=== PATIENT | female | born 1995 | race Asian ===

== ENCOUNTER 2017-07-07 10:20 | Emergency (ER) | payer OTHER ==
[~2017-07-07] VITALS: Ht 162.6 cm; Wt 54.4 kg
[2017-07-07 10:39] VITALS: BP 132/92
[2017-07-07] MEDS ORDERED: NS 250 ML IVPB ONE (11:00)
[2017-07-07] MEDS ORDERED: Morgan Lens TOPIC ONE (11:00)
[2017-07-07] MEDS ORDERED: Tetracaine 0.5% Opth Soln ONE (11:00)
[2017-07-07] MEDS ORDERED: Tetracaine 0.5% Opth Soln LEFT EYE ONE (11:00)
[2017-07-07] MEDS ORDERED: Fluorescein Strips LEFT EYE ONE (11:45)
[2017-07-07 12:18] VITALS: BP 128/88
--- NOTE | 2017-07-09 07:03 | Emergency Room Report ---
History of Present Illness General Chief Complaint: Eye Problems Source: Patient Present Illness HPI 22-year-old female presents ED complaining of left eye pain. States that while driving today she felt something in her eye. Not sure what got into her eye. Patient feels there is something in her upper eyelid. Denies any photophobia or blurry vision. Denies any discharge. Pain is throbbing, 3/10, nonradiating. No other aggravating relieving factors. Denies any other associated symptoms Allergies: Coded Allergies: No Known Allergies (Unverified , 07/07/17) Patient History Past Medical History: none Past Surgical History: none Pertinent Family History: none Social History: Denies: smoking, alcohol use, drug use Now: No Immunizations: UTD Reviewed Nursing Documentation: PMH: Agreed, PSxH: Agreed Nursing Documentation-PMH Past Medical History: No Stated History Review of Systems All Other Systems: negative except mentioned in HPI Physical Exam Vital Signs Date Time Temp Pulse Resp B/P (MAP) Pulse Ox O2 Delivery O2 Flow Rate FiO2 07/07/17 10:31 97.9 63 20 132/92 99 Room Air Sp02 EP Interpretation: reviewed, normal General Appearance: no apparent distress, alert, GCS 15, non-toxic Head: normocephalic, atraumatic Eyes: left eye fluoroscene uptake - no jaye. no corneal abrasion, left eye EOMI, left eye visual acuity, bilateral eye normal inspection, bilateral eye PERRL ENT: hearing grossly normal, normal pharynx, no angioedema, normal voice Neck: normal inspection Respiratory: normal inspection Cardiovascular #1: normal inspection Gastrointestinal: normal inspection Rectal: deferred Genitourinary: no CVA tenderness Musculoskeletal: normal inspection Neurologic: alert, oriented x3, responsive, motor strength/tone normal, sensory intact, speech normal Psychiatric: normal inspection Skin: normal inspection Lymphatic: normal inspection Medical Decision Making Diagnostic Impression: Primary Impression: Irritation of eye ER Course Hospital Course 22-year-old female presents to ED with left eye pain, feel something in his eye Differential diagnoses include: conjunctivitis, traumatic iritis, foreign body, corneal abrasion Clinical course Patient placed on stretcher. After initial history, irrigation was provided using Danny lens and normal saline . I applied tetracaine and Fluorescin to the affected eye. Using Wood's lamp I examined the eyes, no evidence of corneal abrasion. I inverted eyelid and saw no evidence of foreign body. I provided copious eye irrigation using normal saline. Symptoms improved. Reassurance given to the patient. She states she will followup with eye doctor Diagnosis - irritation of eye Stable and discharged to home. Followup with PMD/Optho. Return to ED if symptoms recur or worsen Last Vital Signs Date Time Temp Pulse Resp B/P (MAP) Pulse Ox O2 Delivery O2 Flow Rate FiO2 07/07/17 12:18 97.9 19 128/88 99 Room Air 07/07/17 10:31 63 Status: improved Disposition: HOME, SELF-CARE Condition: Stable Patient Instructions: Eye Foreign Body, [id number] ADY DE LA ROSA M.D. Jul 09, 2017 07:03
== END 2017-07-07 12:07 | disposition home or self-care (01) ==
LOC: EMR 10:45
DX: H57.12 Ocular pain, left eye (principal)
CPT/HCPCS: 65205; 99284; J7050